=== PATIENT | female | born 1935 | race Caucasian/White ===

== ENCOUNTER → 2017-08-11 14:30 | Outpatient (CLI) | payer MEDICARE, OTHER, SELFPAY ==
[2017-08-11 17:41] LABS: Absolute Lymphocyte Count 2.43 X10^3/ul (0.83-4.51); Absolute Neutrophil Count 4.7 X10^3/uL (2.0-7.7); Basophil# 0.03 X10^3/uL; Basophil% 0.4 % (0-1); Eosinophil# 0.55 X10^3/uL; Eosinophils% 6.4 % (0-5); Hemoglobin 13.8 g/dl (12.0-15.0); Lymphocyte # 2.43 X10^3/ul (4.0); Lymphocyte % 28.4 % (19-41); Mean Corp Hgb Conc 33.7 g/gl (32-36); Mean Corpuscular Hgb 30.9 pg (27.0-32.0); Mean Corpuscular Volume 91.7 fL (81-99); Mean Platelet Vol. 11.4 fl (6.2-12.0); Monocyte# 0.79 X10^3/uL; Monocyte% 9.2 % (0-10); Neutrophil # 4.72 X10^3/uL (2.7-7.7); Neutrophil % 55.2 % (47-70); Platelet Count 209 K/mm3 (150-450); RBC Distribution Width CV 13.8 % (11.6-14.6); RBC Distribution Width SD 45.7 fl (35.1-43.9); Red Blood Count 4.47 M/mm3 (4.2-5.4); White Blood Count 8.6 K/mm3 (4.4-11.0)
[2017-08-11 17:58] LABS: POSITIVE COUNT NO; POSITIVE DIFFERENTIAL NO; POSITIVE MORPHOLOGY NO
[2017-08-11 18:13] LABS: ALB/GLOB Ratio 0.9 RATIO (0.9-2.4); AST(SGOT) 20 U/L (15-37); Alanine Aminotransfer ALT/SGPT 27 U/L (13-56); Albumin, Serum 3.7 g/dL (3.2-5.0); Alkaline Phosphatase 77 U/L (45-117); Anion Gap 10 (5-15); BUN 18 mg/dL (7-18); BUN/Creat Ratio 22.6 RATIO (10-20); Calcium,Total 9.3 mg/dL (8.5-10.1); Chloride 102 mmol/L (98-107); EST Glomerular Filtration Rate 74 mL/min (>60); Est Glom Filt Rate - Afr Amer 89 mL/min (>60); Glucose 102 mg/dL (70-110); Potassium 3.8 mmol/L (3.5-5.1); Protein, Total 7.7 g/dL (6.4-8.2); Sodium Level 139 mmol/L (136-145)
== END ==
PROVIDERS: Visit Provider Internal Medicine Rheumatology
DX: L40.59 Other psoriatic arthropathy (principal); M79.7 Fibromyalgia; M15.9 Polyosteoarthritis, unspecified; M21.40 Flat foot [pes planus] (acquired), unspecified foot; E11.49 Type 2 diabetes mellitus with other diabetic neurological complication; I10 Essential (primary) hypertension; E78.5 Hyperlipidemia, unspecified; Z79.899 Other long term (current) drug therapy
CPT/HCPCS: 36415; 80053; 85025

== ENCOUNTER → 2017-09-28 08:30 | Outpatient (CLI) | payer MEDICARE, OTHER, SELFPAY ==
[2017-09-28 10:35] LABS: Absolute Lymphocyte Count 1.68 X10^3/ul (0.83-4.51); Absolute Neutrophil Count 4.8 X10^3/uL (2.0-7.7); Basophil# 0.03 X10^3/uL; Basophil% 0.4 % (0-1); Eosinophil# 0.39 X10^3/uL; Eosinophils% 5.1 % (0-5); Hematocrit 42.2 % (37-47); Lymphocyte # 1.68 X10^3/ul (4.0); Lymphocyte % 21.8 % (19-41); Mean Corp Hgb Conc 33.2 g/gl (32-36); Mean Corpuscular Hgb 30.6 pg (27.0-32.0); Mean Corpuscular Volume 92.3 fL (81-99); Monocyte# 0.77 X10^3/uL; Neutrophil # 4.81 X10^3/uL (2.7-7.7); Neutrophil % 62.4 % (47-70); Platelet Count 189 K/mm3 (150-450); RBC Distribution Width CV 14.5 % (11.6-14.6); RBC Distribution Width SD 47.4 fl (35.1-43.9); Red Blood Count 4.57 M/mm3 (4.2-5.4); White Blood Count 7.7 K/mm3 (4.4-11.0)
[2017-09-28 10:45] LABS: POSITIVE COUNT NO; POSITIVE DIFFERENTIAL NO; POSITIVE MORPHOLOGY NO
[2017-09-28 10:52] LABS: ALB/GLOB Ratio 0.9 RATIO (0.9-2.4); AST(SGOT) 17 U/L (15-37); Alanine Aminotransfer ALT/SGPT 23 U/L (13-56); Albumin, Serum 3.7 g/dL (3.2-5.0); Alkaline Phosphatase 84 U/L (45-117); Anion Gap 9 (5-15); BUN 17 mg/dL (7-18); BUN/Creat Ratio 21.2 RATIO (10-20); Calcium,Total 9.3 mg/dL (8.5-10.1); Chloride 106 mmol/L (98-107); EST Glomerular Filtration Rate 73 mL/min (>60); Est Glom Filt Rate - Afr Amer 88 mL/min (>60); Globulin 3.9 g/dL (2.2-4.2); Glucose 134 mg/dL (74-106); Potassium 4.2 mmol/L (3.5-5.1); Protein, Total 7.6 g/dL (6.4-8.2); Sodium Level 140 mmol/L (136-145)
== END ==
PROVIDERS: Visit Provider Internal Medicine Rheumatology
DX: L40.59 Other psoriatic arthropathy (principal); Z79.899 Other long term (current) drug therapy; M79.7 Fibromyalgia; L40.8 Other psoriasis; M15.9 Polyosteoarthritis, unspecified; M21.40 Flat foot [pes planus] (acquired), unspecified foot; E11.49 Type 2 diabetes mellitus with other diabetic neurological complication; E78.5 Hyperlipidemia, unspecified; I10 Essential (primary) hypertension
CPT/HCPCS: 36415; 80053; 85025

== ENCOUNTER → 2018-01-03 09:42 | Outpatient (CLI) | payer MEDICARE, OTHER, SELFPAY ==
--- NOTE | 2018-01-03 09:44 | ECHOD_ITS ---
Reason For Study: ATRIAL FIB-FLUTTER Procedure This was a 2D Doppler, Color Flow transthoracic echocardiogram. Exam performed in department. Left Ventricle Moderately dilated left ventricle. The estimated ejection fraction is 35-40 %. Unable to assess diastolic dysfunction due to arrhythmia. There is moderate to severe global hypokinesis of the left ventricle. Right Ventricle Normal size and thickness. Normal systolic function. Atria Normal left atrium. Normal right atrium. Normal atrial septum. Mitral Valve The mitral valve is structurally normal. No prolapse or stenosis seen. Mild (1+) mitral valve insufficiency. Tricuspid Valve Normal tricuspid valve. Mild (1+) tricuspid valve insufficiency. Right ventricular systolic pressure estimated to be 55 mmHg. Moderate pulmonary hypertension. Aortic Valve Trisinus/trileaflet aortic valve. Moderate focal aortic valve thickening. Mild focal aortic valve calcification. Moderate restriction of the aortic valve. Moderate aortic stenosis. Peak aortic valve gradient 26 mmHg. Mean aortic valve gradient 16 mmHg. Calculated aortic valve area (continuity equation) is 0.89 cm2. Pulmonic Valve Normal pulmonic valve. Mild (1+) pulmonic valve insufficiency. Great Vessels Normal aortic root. Mild atherosclerosis of the aortic arch. Normal inferior vena cava. Inferior vena cava collapse with sniff. Pericardium/Pleural Trivial pericardial effusion. There are no echocardiographic indications of cardiac tamponade. MMode/2D Measurements & Calculations LVIDd: 5.7 cm IVSd: 1.1 cm LVOT diam: 2.0 cm LVIDs: 4.5 cm LVPWd: 0.97 cm LVOT area: 3.2 cm2 RVDd: 2.9 cm FS: 21.6 % Ao root diam: 3.5 cm LAV(MOD-bp): 66.6 ml LVAd ap4: 37.0 cm2 LA dimension: 3.8 cm LAV(MOD-bp) Indexed: 36.9 ml/m2 EDV(MOD-sp4): 131.2 ml LAV(MOD-sp2): 75.2 ml EDV(sp4-el): 137.6 ml LAV(MOD-sp4): 54.5 ml LVAs ap4: 29.4 cm2 ESV(MOD-sp4): 91.2 ml ESV(sp4-el): 93.1 ml EF(MOD-sp4): 30.5 % EF(sp4-el): 32.3 % SV(MOD-sp4): 40.0 ml SV(sp4-el): 44.5 ml LA A4 area: 19.8 cm2 RA A4 area: 14.6 cm2 Doppler Measurements & Calculations MV E max ayde: 124.2 cm/sec Ao V2 max: 252.8 cm/sec LV V1 max: 69.1 cm/sec Ao max P.8 mmHg LV V1 max P.9 mmHg Ao V2 mean: 187.0 cm/sec LV V1 mean P.1 mmHg Ao mean P.0 mmHg LV V1 mean: 49.4 cm/sec Ao V2 VTI: 43.9 cm LV V1 VTI: 12.6 cm CHERYL(I,D): 0.93 cm2 CHERYL(V,D): 0.89 cm2 SV(LVOT): 41.0 ml PA V2 max: 114.0 cm/sec TR max ayde: 280.5 cm/sec TR max P.9 mmHg Interpretation Summary Moderately dilated left ventricle. The estimated ejection fraction is 35-40 %. Unable to assess diastolic dysfunction due to arrhythmia. There is moderate to severe global hypokinesis of the left ventricle. Mild (1+) mitral valve insufficiency. Mild (1+) tricuspid valve insufficiency. Right ventricular systolic pressure estimated to be 55 mmHg. Moderate pulmonary hypertension. Moderate to severe restriction of the aortic valve. Moderate aortic stenosis, may be underestimated due to poor LV function and atrial fibrillation.. Trivial pericardial effusion. There are no echocardiographic indications of cardiac tamponade. Pt appears to be in atrial fibrillation. Recommend considering stress echo to better evaluated severity of aortic stenosis. There is no comparison study available. Ordering Physician: Jeferson Black Referring Physician: YRIS DAUGHERTY Performed By: Iman Nathan RDCS
== END ==
PROVIDERS: Visit Provider Internal Medicine Cardiovascular Disease
DX: Z98.891 History of uterine scar from previous surgery (principal)
CPT/HCPCS: 93306

== ENCOUNTER → 2018-01-05 13:58 | Outpatient (CLI) | payer MEDICARE, OTHER, SELFPAY ==
[2018-01-05 14:59] LABS: Absolute Lymphocyte Count 1.43 X10^3/ul (0.83-4.51); Absolute Neutrophil Count 5.2 X10^3/uL (2.0-7.7); Basophil# 0.01 X10^3/uL; Basophil% 0.1 % (0-1); Eosinophil# 0.51 X10^3/uL; Eosinophils% 6.5 % (0-5); Hematocrit 39.5 % (37-47); Hemoglobin 12.4 g/dl (12.0-15.0); Lymphocyte # 1.43 X10^3/ul (4.0); Lymphocyte % 18.2 % (19-41); Mean Corp Hgb Conc 31.4 g/gl (32-36); Mean Corpuscular Hgb 28.6 pg (27.0-32.0); Mean Corpuscular Volume 91.2 fL (81-99); Mean Platelet Vol. 10.5 fl (6.2-12.0); Monocyte# 0.74 X10^3/uL; Monocyte% 9.4 % (0-10); Neutrophil # 5.16 X10^3/uL (2.7-7.7); Neutrophil % 65.7 % (47-70); Platelet Count 202 K/mm3 (150-450); RBC Distribution Width CV 15.1 % (11.6-14.6); RBC Distribution Width SD 50.7 fl (35.1-43.9); Red Blood Count 4.33 M/mm3 (4.2-5.4); White Blood Count 7.9 K/mm3 (4.4-11.0)
[2018-01-05 15:03] LABS: POSITIVE COUNT NO; POSITIVE DIFFERENTIAL NO; POSITIVE MORPHOLOGY NO
[2018-01-05 15:40] LABS: Anion Gap 6 (5-15); BUN 20 mg/dL (7-18); BUN/Creat Ratio 23.4 RATIO (10-20); Calcium,Total 9.1 mg/dL (8.5-10.1); Chloride 104 mmol/L (98-107); Creatinine, Serum 0.86 mg/dL (0.55-1.02); EST Glomerular Filtration Rate 68 mL/min (>60); Est Glom Filt Rate - Afr Amer 82 mL/min (>60); Glucose 151 mg/dL (74-106); Potassium 4.2 mmol/L (3.5-5.1); Sodium Level 138 mmol/L (136-145); T4 Total, Thyroxin 9.6 ug/dL (4.8-13.9); Thyroid Stim Hormone (TSH) 1.74 uIU/mL (0.358-3.74)
[2018-01-05 15:47] LABS: BNP,B-Type NATRIURETIC PEPTIDE 372.7 pg/mL (0-100)
== END ==
PROVIDERS: Visit Provider Nurse Practitioner Family
DX: I11.0 Hypertensive heart disease with heart failure (principal); I50.31 Acute diastolic (congestive) heart failure; I48.91 Unspecified atrial fibrillation; R06.00 Dyspnea, unspecified; E78.5 Hyperlipidemia, unspecified
CPT/HCPCS: 36415; 80048; 83880; 84436; 84443; 85025

== ENCOUNTER → 2018-01-10 06:55 | Outpatient (CLI) | payer MEDICARE, OTHER, SELFPAY ==
--- NOTE | 2018-01-10 10:52 | STRESSREP ---
Stress Test Report Pharmacologic myocardial perfusion stress test. 82-year-old lady with a history of paroxysmal atrial fibrillation as well as dyspnea on exertion. Stress protocol: Resting EKG demonstrates atrial for ablation with rate of 97 bpm normal intervals and noted resting blood pressure is 134/84 mmHg. 0.4 mg of regadenoson was infused per usual protocol followed by rapid intravenous saline flush injection continuous EKG monitoring was performed. Patient maintained atrial for ablation throughout the recording. At peak infusion there was approximately [address] depression with T-wave inversions noted in leads II, III and aVF and T-wave inversions noted in lead V5 and V6. The above are suggestive of abnormal flow reserve though not diagnostic. The resting blood pressure is 134/84 with a final blood pressure 120/84 mmHg. Myocardial perfusion protocol. 12.0 mCi of technetium 99m sestamibi was injected at rest. 0.4 mg of regadenoson was infused per usual protocol peak infusion 33.0 mCi of technetium 99m sestamibi was injected stress images were obtained stress and rest images were reconstructed and compared in the short axis vertical long and horizontal long axis. Gated images were also obtained pre- Perfusion SPECT analysis: Review of the stress images demonstrate a normal cardiac silhouette size. The septum appears to be well perfused on the stress images. The anterior wall appears to have mildly reduced perfusion. The mid lateral wall has moderately reduced perfusion on the stress images extending to the inferolateral wall. Resting images demonstrate normalization of perfusion in the mid lateral wall inferolateral wall and to the anterolateral wall. The above is suggestive of anterolateral mid lateral inferolateral ischemia. There is GI motion artifact also noted. Gated SPECT analysis: The gated ejection fraction is noted to be 31%. Conclusion: Abnormal pharmacologic myocardial perfusion stress test with mid anterolateral, mid lateral and inferolateral ischemia present in a moderate size zone. Ischemic cardiomyopathy present. Atrial fibrillation present.
== END ==
PROVIDERS: Visit Provider Internal Medicine Cardiovascular Disease
DX: I48.0 Paroxysmal atrial fibrillation (principal); I10 Essential (primary) hypertension; R06.00 Dyspnea, unspecified; Z98.891 History of uterine scar from previous surgery
CPT/HCPCS: 78452; 93017; A9500; A4216; J2785

== ENCOUNTER → 2018-01-11 10:21 | Outpatient (CLI) | payer MEDICARE, OTHER, SELFPAY ==
--- NOTE | 2018-01-11 10:25 | RAD_ITS ---
STUDY: X-RAY CHEST REASON FOR EXAM: Female, 82 years old. SOB pt states she is having stents put in her heart January 31, 2018 TECHNIQUE: Frontal and lateral views of the chest. COMPARISON: March 12, 2017 FINDINGS: Chronic appearing increased interstitial lung markings. There is no demonstrated pleural abnormality. Enlarged heart size. Normal mediastinum and guru. Normal visualized pulmonary arteries. There is atherosclerotic calcification of the aortic arch with tortuosity. There are diffuse degenerative changes of the visualized thoracic spine. There is degenerative osteoarthritis of the bilateral shoulders. There is no demonstrated abnormality of the visualized soft tissue structures of the upper abdomen. RAD/Chest PA and Lateral IMPRESSION: There are no acute findings. Electronically Signed: Jesse Whyte MD at 19:03 EDT , Service support ,
[2018-01-11 11:30] LABS: International Normalized Ratio 1.2; Partial Thromboplast Time 32.6 Seconds (24.1-36.2); Prothrombin Time (Protime)PT. 14.7 SECONDS (11.7-14.9)
[2018-01-11 12:08] LABS: Anion Gap 11 (5-15); BUN 16 mg/dL (7-18); Chloride 104 mmol/L (98-107); EST Glomerular Filtration Rate 73 mL/min (>60); Est Glom Filt Rate - Afr Amer 89 mL/min (>60); Glucose 103 mg/dL (74-106); Potassium 3.8 mmol/L (3.5-5.1); Sodium Level 141 mmol/L (136-145)
== END ==
PROVIDERS: Visit Provider Internal Medicine Cardiovascular Disease
DX: R06.02 Shortness of breath (principal); R06.09 Other forms of dyspnea; I48.0 Paroxysmal atrial fibrillation; E78.5 Hyperlipidemia, unspecified; I10 Essential (primary) hypertension; I35.0 Nonrheumatic aortic (valve) stenosis
CPT/HCPCS: 36415; 71046; 80048; 85610; 85730

== ENCOUNTER → 2018-01-28 06:55 | Day surgery (SDC) | payer MEDICARE, OTHER, SELFPAY ==
[2018-01-27 09:03] VITALS: BMI 32.9
--- NOTE | 2018-01-28 09:56 | CL.D_ITS ---
Patient Name: ORTIZ BERGER Study Date: 01/28/2018 Performing: Jeferson Black MD Ht: 62.99 inches 160 cm : 1935 Wt: 185.19 lbs 84 kg Age: 82 Gender: female BSA: 1.87 PROCEDURE(S) PERFORMED [id number]-AO ROOT ANGIO WITH HEART CATH [id number]/COR/LV CLINICAL PROFILE AND INDICATIONS Indications: Heart Failure: NYHA Class: 3, Newly Diagnosed: Yes, Heart Failure Type: Systolic Stress/Imaging Stress Test w/SPECT MPI: Yes Result: Positive High RiskStress Test with SPECT MPI: Positive High Risk CAD Presentations: Other: Dyspnea on exertion, fatigue. Comorbidities/Risk Factors: Hypertension Dyslipidemia Diabetes Mellitus: Diabetes Therapy: Diet CONCLUSIONS Global LV systolic dysfunction- Moderate Triple vessel CAD of the LAD, OM, LCX and RCA RECOMMENDATIONS ASA Indefinitely Management as per referring Community Relations Advisor Surgery consult for coronary revascularization Referral to [facility] Stop diltiazem Start coreg, cozaar, lasix. lipitor. DESCRIPTION OF PROCEDURE The patient arrived to the procedure lab. The risks and benefits of the procedure as well as a full d escription of our services here and current unavailability of surgical backup were fully explained to the patient and/or their significant other prior to the catheterization. The Timeout was completed, verifying the correct patient and procedure. The patient's procedural site was prepped and draped in the usual fashion. Local anesthetic was given subcutaneously to right groin region with Lidocaine 2%. Using a modified Seldinger technique, arterial access was obtained via the right femoral artery, a 4 Fr sheath was inserted Left Coronary Artery selective angiography was performed in multiple views us ing a 4 Fr. JL5 catheter. Right Coronary Artery selective angiography was then performed in multiple views using a 4 Fr. 3DRC catheter. Left Ventriculography was performed in [place] ROS[place]IO projection using a 4 Fr . Pigtail catheter. LV to AO pullback pressures were then recorded. Ascending (root) aorta selective angiography was then performed in single view. Ascending (root) aorta selective angiography was then performed in single view.The arterial sheath was pulled and manual compression applied until hemostas is is achieved. CORONARY ANGIOGRAPHY DOMINANCE: Right Dominant LEFT HEART ASSESSMENT Left Ventricular Ejection Fraction: by LV Gram 35 % Global Hypokinesis - Moderate to severe Depressed Left Ventricular systolic function Elevated Left Ventricular End Diastolic Pressure Aortic Valve Mean Gradient: 20.4 Severe descending aorta tortuosity. LEFT MAIN: Mild calcification LEFT ANTERIOR DECENDING ARTERY: MID LAD: Moderate calcification, 75 % Stenosis DIAGONAL 1: Ostial - 85 % Stenosis CIRCUMFLEX ARTERY: PROX CIRC: Mild calcification, 85 % Stenosis MID CIRC: 75 % Stenosis OM 1: Ostial - is occluded RIGHT CORONARY ARTERY: PROX RCA: 75 % Stenosis MID RCA: Moderate calcification, 75 % Stenosis DISTAL RCA: 75 % Stenosis RT PLV: 75 ostial % Stenosis RT PDA: Ostial - 70 % Stenosis COLLATERAL FLOW: Collateral flow from Left to Left Collateral flow from Right to Left VALVE FINDINGS: Aortic Valve Stenosis - mild COMPLICATIONS No Complications PROCEDURE MEDICATIONS Versed 1 mg IV SUMMARY OF HEMODYNAMIC DATA Time AIR REST ECG 07:17:21 ECG 08:28:59 LV 141/-3, 2 09:29:35 LV 134/-9, 4 09:29:42 LVp 139/-7, 7 09:29:52 AO 126/74 (92) SA 09:30:04 Valve Area (c P-P/ms Time AIR REST Aortic 0.00 20.4 mn/200 ms 139.0 pk/200 ms 09:29:52 Signed By Jeferson Black MD On 01/28/2018 09:56:00 Jeferson Black MD
== END ==
PROVIDERS: Visit Provider Internal Medicine Cardiovascular Disease
DX: I25.10 Atherosclerotic heart disease of native coronary artery without angina pectoris (principal); I35.0 Nonrheumatic aortic (valve) stenosis; I11.0 Hypertensive heart disease with heart failure; I50.31 Acute diastolic (congestive) heart failure; I48.0 Paroxysmal atrial fibrillation; E11.9 Type 2 diabetes mellitus without complications; L40.50 Arthropathic psoriasis, unspecified; E78.5 Hyperlipidemia, unspecified; M79.7 Fibromyalgia; M10.9 Gout, unspecified; G47.33 Obstructive sleep apnea (adult) (pediatric); Z79.01 Long term (current) use of anticoagulants; Z79.82 Long term (current) use of aspirin; Z79.899 Other long term (current) drug therapy; Z87.891 Personal history of nicotine dependence
CPT/HCPCS: 75625; 93458; 99152; 99153; J7040; C1751; C1769; C1894; Q9967

== ENCOUNTER → 2018-02-01 11:30 | Outpatient (CLI) | payer MEDICARE, OTHER, SELFPAY ==
[2018-02-01 11:51] LABS: Absolute Lymphocyte Count 1.51 X10^3/ul (0.83-4.51); Absolute Neutrophil Count 4.8 X10^3/uL (2.0-7.7); Basophil# 0.02 X10^3/uL; Basophil% 0.3 % (0-1); Eosinophil# 0.62 X10^3/uL; Hematocrit 38.4 % (37-47); Hemoglobin 12.5 g/dl (12.0-15.0); Lymphocyte # 1.51 X10^3/ul (4.0); Lymphocyte % 19.5 % (19-41); Mean Corp Hgb Conc 32.6 g/gl (32-36); Mean Corpuscular Hgb 28.9 pg (27.0-32.0); Mean Corpuscular Volume 88.7 fL (81-99); Mean Platelet Vol. 10.6 fl (6.2-12.0); Monocyte# 0.77 X10^3/uL; Monocyte% 9.9 % (0-10); Platelet Count 192 K/mm3 (150-450); RBC Distribution Width CV 14.7 % (11.6-14.6); RBC Distribution Width SD 47.2 fl (35.1-43.9); Red Blood Count 4.33 M/mm3 (4.2-5.4); White Blood Count 7.7 K/mm3 (4.4-11.0)
[2018-02-01 11:52] LABS: POSITIVE COUNT NO; POSITIVE DIFFERENTIAL NO; POSITIVE MORPHOLOGY NO
[2018-02-01 12:24] LABS: Anion Gap 9 (5-15); BUN 20 mg/dL (7-18); Calcium,Total 8.8 mg/dL (8.5-10.1); Chloride 106 mmol/L (98-107); Creatinine, Serum 0.84 mg/dL (0.55-1.02); EST Glomerular Filtration Rate 70 mL/min (>60); Est Glom Filt Rate - Afr Amer 84 mL/min (>60); Glucose 108 mg/dL (74-106); Potassium 4.5 mmol/L (3.5-5.1); Sodium Level 141 mmol/L (136-145)
== END ==
PROVIDERS: Visit Provider Internal Medicine Cardiovascular Disease
DX: R94.39 Abnormal result of other cardiovascular function study (principal); I43 Cardiomyopathy in diseases classified elsewhere
CPT/HCPCS: 36415; 80048; 85025